=== PATIENT | female | born 1945 | race African-American/Black ===

== ENCOUNTER → 2018-04-07 | Outpatient (CLI) | payer MEDICARE, OTHER | END | disposition home or self-care (01) | LOC: NM 08:00 | PROVIDERS: ATTEND Specialist | DX: C50.919 Malignant neoplasm of unspecified site of unspecified female breast (principal) | CPT/HCPCS: 78306; A9503; C1893 ==

== ENCOUNTER → 2020-06-06 | Outpatient (CLI) | payer MEDICARE, OTHER | END | disposition home or self-care (01) | LOC: MRI 08:27 | PROVIDERS: ATTEND Neurological Surgery | DX: M47.816 Spondylosis without myelopathy or radiculopathy, lumbar region (principal); M48.07 Spinal stenosis, lumbosacral region; M51.27 Other intervertebral disc displacement, lumbosacral region; M25.78 Osteophyte, vertebrae | CPT/HCPCS: 72148 ==

== ENCOUNTER → 2021-02-11 | Outpatient (CLI) | payer MEDICARE, OTHER ==
[~2021-02-11] MED LIST: AMLO5TAB88 PO; ERGO500013 PO; HYDR-4001 PO; LEVA1.2526 NEB; LORA10TA7 PO; MELO-104 PO; MONT10TA32 PO; SIMV-43 PO; TRAM50TA3 PO; TRAV2.5D BOTHEYE
== END | disposition home or self-care (01) ==
LOC: LAB 14:05
PROVIDERS: ATTEND Neurological Surgery
DX: Z01.812 Encounter for preprocedural laboratory examination (principal); Z20.822 Contact with and (suspected) exposure to COVID-19
CPT/HCPCS: 87426

== ENCOUNTER 2021-02-18 21:39 | Inpatient (IN) | payer MEDICARE, OTHER ==
[~2021-02-18] VITALS: Ht 162.6 cm; Wt 64.9 kg
[2021-02-18 21:39] VITALS: BP 139/78
[~2021-02-18 21:39] MED LIST changes: +FLOV44 INH; +IPRA4AER INH
[2021-02-18] MEDS ORDERED: CLONIDINE 0.1MG TABLET PO PRN (22:30)
[2021-02-18] MEDS ORDERED: BISACODYL 5MG TABLET PO PRN (22:30)
[2021-02-18] MEDS ORDERED: IPRATROPIUM/ALBUTEROL 0.5-3(2.5)MG/3ML NEB HHN PRN (22:30)
[2021-02-19] MEDS: HYDROCODONE/ACETAMINOPHEN 5/325MG TABLET PO PRN ×3 (03:07→21:52)
[2021-02-19 06:52] LABS: BASOPHILS % 0.6 % (0.0-2.0); EOSINOPHILS % 1.7 % (0.0-5.0); HEMATOCRIT. 35.7 % (36.0-48.0); HEMOGLOBIN. 12.1 g/dL (12.0-16.0); MEAN CORPUSCULAR VOLUME 85.6 fL (81.0-99.0); MONOCYTES % 8.7 % (2.0-8.0); PLATELET 406 x1000/uL (130-400); RED BLOOD CELL COUNT 4.17 mill/uL (4.2-5.4); RED CELL DISTRIBUTION WIDTH 15.3 % (11.6-14.6)
[2021-02-19 07:04] LABS: CHLORIDE 104 mEq/L (98-107)
[2021-02-19 08:08] VITALS: BP 137/66
[2021-02-19] MEDS: AMLODIPINE 5MG TABLET PO SCH (08:45)
[2021-02-19] MEDS: DOCUSATE SODIUM 100MG CAPSULE PO SCH ×2 (08:45→16:06)
[2021-02-19] MEDS: LORATADINE 10MG TABLET PO SCH (08:45)
[2021-02-19] MEDS ORDERED: TRAMADOL 50MG TABLET PO PRN (10:15)
[2021-02-19 10:21] VITALS: BP 164/105
[2021-02-19] MEDS ORDERED: TEMAZEPAM 15MG CAPSULE PO PRN (11:00)
[2021-02-19 12:13] VITALS: BP 127/74
[2021-02-19 20:00] VITALS: BP 123/59
[2021-02-19] MEDS: POLYETHYLENE GLYCOL 3350 (17GM) 1 DOSE PACK PO SCH (21:00)
[2021-02-19] MEDS: MONTELUKAST SODIUM 10MG TABLET PO SCH (21:44)
[2021-02-19] MEDS: ATORVASTATIN CALCIUM 20MG TABLET PO SCH (21:44)
[2021-02-20] MEDS: HYDROCODONE/ACETAMINOPHEN 5/325MG TABLET PO PRN ×3 (02:35→13:34)
[2021-02-20 07:13] LABS: HEMATOCRIT. 32.7 % (36.0-48.0); HEMOGLOBIN. 11.1 g/dL (12.0-16.0); MEAN CORPUSCULAR HEMOGLOBIN 28.9 pg (28.0-32.0); MEAN CORPUSCULAR VOLUME 85.1 fL (81.0-99.0); MEAN PLATELET VOLUME 7.2 fl (7.4-10.4); PLATELET 421 x1000/uL (130-400); RED BLOOD CELL COUNT 3.84 mill/uL (4.2-5.4); RED CELL DISTRIBUTION WIDTH 15.4 % (11.6-14.6)
[2021-02-20 07:43] LABS: CHLORIDE 103 mEq/L (98-107); FOLIC ACID (FOLATE) SERUM 19.3 ng/mL (>5.38)
[2021-02-20 07:50] LABS: TOTAL IRON BINDING CAPACITY 215 ug/dL (250-450)
[2021-02-20 08:25] VITALS: BP 132/71
[2021-02-20] MEDS: AMLODIPINE 5MG TABLET PO SCH (09:14)
[2021-02-20] MEDS: LORATADINE 10MG TABLET PO SCH (09:14)
[2021-02-20] MEDS: DOCUSATE SODIUM 100MG CAPSULE PO SCH ×2 (09:14→16:10)
[2021-02-20] MEDS: CYANOCOBALAMIN 1000MCG/ML VIAL IM SCH (15:32)
[2021-02-20] MEDS: FERROUS SULFATE 325MG TABLET PO SCH (16:10)
[2021-02-20 17:11] LABS: PLATELET ESTIMATE INCREASED
[2021-02-20 20:00] VITALS: BP 140/71
[2021-02-20] MEDS: POLYETHYLENE GLYCOL 3350 (17GM) 1 DOSE PACK PO SCH (22:24)
[2021-02-20] MEDS: MONTELUKAST SODIUM 10MG TABLET PO SCH (22:25)
[2021-02-20] MEDS: ATORVASTATIN CALCIUM 20MG TABLET PO SCH (22:25)
[2021-02-21] MEDS: AMLODIPINE 5MG TABLET PO SCH (09:05)
[2021-02-21] MEDS: FERROUS SULFATE 325MG TABLET PO SCH ×3 (09:05→17:48)
[2021-02-21] MEDS: LORATADINE 10MG TABLET PO SCH (09:06)
[2021-02-21] MEDS: CYANOCOBALAMIN 1000MCG/ML VIAL IM SCH (09:06)
[2021-02-21] MEDS: DOCUSATE SODIUM 100MG CAPSULE PO SCH ×2 (09:06→17:48)
[2021-02-21] MEDS: ASCORBIC ACID 500 MG TABLET PO SCH (09:06)
[2021-02-21 20:00] VITALS: BP 119/78
[2021-02-21] MEDS: ATORVASTATIN CALCIUM 20MG TABLET PO SCH (20:44)
[2021-02-21] MEDS: MONTELUKAST SODIUM 10MG TABLET PO SCH (20:44)
[2021-02-21] MEDS: POLYETHYLENE GLYCOL 3350 (17GM) 1 DOSE PACK PO SCH (20:50)
[2021-02-21] MEDS: HYDROCODONE/ACETAMINOPHEN 5/325MG TABLET PO PRN (20:50)
[2021-02-22 08:08] VITALS: BP 120/66
[2021-02-22] MEDS: CYANOCOBALAMIN 1000MCG/ML VIAL IM SCH (09:31)
[2021-02-22] MEDS: AMLODIPINE 5MG TABLET PO SCH (09:31)
[2021-02-22] MEDS: ASCORBIC ACID 500 MG TABLET PO SCH (09:32)
[2021-02-22] MEDS: DOCUSATE SODIUM 100MG CAPSULE PO SCH ×2 (09:32→16:03)
[2021-02-22] MEDS: LORATADINE 10MG TABLET PO SCH (09:32)
[2021-02-22] MEDS: FERROUS SULFATE 325MG TABLET PO SCH ×3 (09:32→16:03)
[2021-02-22] MEDS: HYDROCODONE/ACETAMINOPHEN 5/325MG TABLET PO PRN ×2 (09:54→20:34)
[2021-02-22] MEDS: DILTIAZEM HCL 30MG TABLET PO SCH ×2 (16:03→17:19)
[2021-02-22 20:00] VITALS: BP 147/60
[2021-02-22] MEDS: ATORVASTATIN CALCIUM 20MG TABLET PO SCH (20:31)
[2021-02-22] MEDS: MONTELUKAST SODIUM 10MG TABLET PO SCH (20:31)
[2021-02-22] MEDS: POLYETHYLENE GLYCOL 3350 (17GM) 1 DOSE PACK PO SCH (20:31)
[2021-02-23] MEDS: DILTIAZEM HCL 30MG TABLET PO SCH ×4 (00:04→18:27)
[2021-02-23 07:17] LABS: BASOPHILS % 0.6 % (0.0-2.0); EOSINOPHILS % 1.1 % (0.0-5.0); HEMATOCRIT. 33.3 % (36.0-48.0); HEMOGLOBIN. 11.3 g/dL (12.0-16.0); MEAN CORPUSCULAR VOLUME 85.4 fL (81.0-99.0); MEAN PLATELET VOLUME 6.8 fl (7.4-10.4); MONOCYTES % 12.2 % (2.0-8.0); NEUTROPHILS % 64.1 % (40.0-76.0); PLATELET 504 x1000/uL (130-400); RED BLOOD CELL COUNT 3.89 mill/uL (4.2-5.4); RED CELL DISTRIBUTION WIDTH 15.2 % (11.6-14.6)
[2021-02-23 07:18] LABS: CHLORIDE 103 mEq/L (98-107)
[2021-02-23 08:00] VITALS: BP 153/76
[2021-02-23] MEDS ORDERED: POTASSIUM CHLORIDE 20MEQ/PACKET PO NR (09:00)
[2021-02-23] MEDS: ASCORBIC ACID 500 MG TABLET PO SCH (09:26)
[2021-02-23] MEDS: CYANOCOBALAMIN 1000MCG/ML VIAL IM SCH (09:26)
[2021-02-23] MEDS: FERROUS SULFATE 325MG TABLET PO SCH ×4 (09:26→17:00)
[2021-02-23] MEDS: DOCUSATE SODIUM 100MG CAPSULE PO SCH ×3 (09:26→17:00)
[2021-02-23] MEDS: LORATADINE 10MG TABLET PO SCH (09:27)
[2021-02-23] MEDS: ASPIRIN 81MG EC TABLET PO SCH (09:28)
[2021-02-23] MEDS ORDERED: ENOXAPARIN 80MG/0.8ML SYR SUBCUT SCH (13:30)
[2021-02-23] MEDS: ENOXAPARIN 40MG/0.4ML SYR SUBCUT SCH (15:17)
[2021-02-23] MEDS: HYDROCODONE/ACETAMINOPHEN 5/325MG TABLET PO PRN (16:59)
[2021-02-23 20:00] VITALS: BP 155/68
[2021-02-23] MEDS: POLYETHYLENE GLYCOL 3350 (17GM) 1 DOSE PACK PO SCH (21:00)
[2021-02-23] MEDS: ATORVASTATIN CALCIUM 20MG TABLET PO SCH (21:52)
[2021-02-23] MEDS: MONTELUKAST SODIUM 10MG TABLET PO SCH (21:52)
[2021-02-24] MEDS: DILTIAZEM HCL 30MG TABLET PO SCH ×5 (01:01→23:38)
[2021-02-24 06:55] VITALS: BP 146/66
[2021-02-24 07:31] LABS: INR 1.1; PROTHROMBIN TIME 11.7 sec (9.6-11.0)
[2021-02-24] MEDS: CYANOCOBALAMIN 1000MCG/ML VIAL IM SCH (08:26)
[2021-02-24] MEDS: ASCORBIC ACID 500 MG TABLET PO SCH (08:26)
[2021-02-24] MEDS: ASPIRIN 81MG EC TABLET PO SCH (08:26)
[2021-02-24] MEDS: FERROUS SULFATE 325MG TABLET PO SCH ×3 (08:26→17:50)
[2021-02-24] MEDS: DOCUSATE SODIUM 100MG CAPSULE PO SCH ×2 (08:26→17:50)
[2021-02-24] MEDS: LORATADINE 10MG TABLET PO SCH (08:27)
[2021-02-24] MEDS ORDERED: POTASSIUM CHLORIDE 20MEQ TABLET SR PO NR (10:15)
[2021-02-24] MEDS: ENOXAPARIN 40MG/0.4ML SYR SUBCUT SCH (15:11)
[2021-02-24 20:00] VITALS: BP 152/55
[2021-02-24] MEDS: POLYETHYLENE GLYCOL 3350 (17GM) 1 DOSE PACK PO SCH (21:00)
[2021-02-24] MEDS: MONTELUKAST SODIUM 10MG TABLET PO SCH (21:41)
[2021-02-24] MEDS: ATORVASTATIN CALCIUM 20MG TABLET PO SCH (21:41)
[2021-02-25] MEDS: DILTIAZEM HCL 30MG TABLET PO SCH ×3 (05:42→18:00)
[2021-02-25 07:34] LABS: CHLORIDE 104 mEq/L (98-107)
[2021-02-25 07:50] VITALS: BP 135/63
[2021-02-25] MEDS: DOCUSATE SODIUM 100MG CAPSULE PO SCH ×2 (09:04→17:52)
[2021-02-25] MEDS: CYANOCOBALAMIN 1000MCG/ML VIAL IM SCH (09:04)
[2021-02-25] MEDS: ASPIRIN 81MG EC TABLET PO SCH (09:04)
[2021-02-25] MEDS: FERROUS SULFATE 325MG TABLET PO SCH ×3 (09:05→17:52)
[2021-02-25] MEDS: ASCORBIC ACID 500 MG TABLET PO SCH (09:05)
[2021-02-25] MEDS: LORATADINE 10MG TABLET PO SCH (09:05)
[2021-02-25] MEDS ORDERED: ERGOCALCIFEROL 50000UNITS CAPSULE PO SCH (15:00)
[2021-02-25] MEDS: ENOXAPARIN 40MG/0.4ML SYR SUBCUT SCH (15:16)
[2021-02-25 20:00] VITALS: BP 160/72
[2021-02-25] MEDS: ATORVASTATIN CALCIUM 20MG TABLET PO SCH (22:08)
[2021-02-25] MEDS: POLYETHYLENE GLYCOL 3350 (17GM) 1 DOSE PACK PO SCH (22:09)
[2021-02-25] MEDS: MONTELUKAST SODIUM 10MG TABLET PO SCH (22:09)
[2021-02-26] MEDS: DILTIAZEM HCL 30MG TABLET PO SCH ×3 (00:42→12:16)
[2021-02-26 08:00] VITALS: BP 147/76
[2021-02-26] MEDS: FERROUS SULFATE 325MG TABLET PO SCH ×2 (08:34→12:14)
[2021-02-26] MEDS: ASPIRIN 81MG EC TABLET PO SCH (08:34)
[2021-02-26] MEDS: ASCORBIC ACID 500 MG TABLET PO SCH (08:34)
[2021-02-26] MEDS: LORATADINE 10MG TABLET PO SCH (08:34)
[2021-02-26] MEDS: DOCUSATE SODIUM 100MG CAPSULE PO SCH (08:34)
[2021-02-26] MEDS: CYANOCOBALAMIN 1000MCG/ML VIAL IM SCH (08:34)
[2021-02-26] MEDS ORDERED: FERR325T23 PO (09:54)
[2021-02-26] MEDS ORDERED: ASPI-1406 PO (09:54)
[2021-02-26] MEDS ORDERED: DILT30TA38 PO (09:54)
[2021-02-26 11:32] VITALS: BP 147/76
== END 2021-02-26 13:17 | disposition home health service (06) | DRG 552 ==
PROVIDERS: ADMIT Physical Medicine & Rehabilitation Spinal Cord Injury Medicine; ATTEND Internal Medicine
DX: M48.061 Spinal stenosis, lumbar region without neurogenic claudication (principal); G82.20 Paraplegia, unspecified; E11.9 Type 2 diabetes mellitus without complications; F39 Unspecified mood [affective] disorder; G89.4 Chronic pain syndrome; I10 Essential (primary) hypertension; J42 Unspecified chronic bronchitis; Z85.3 Personal history of malignant neoplasm of breast; Z87.891 Personal history of nicotine dependence; Z90.13 Acquired absence of bilateral breasts and nipples
CPT/HCPCS: 36415; 71045; 71046; 78582; 80048; 80053; 82306; 82607; 82728; 82746; 83540; 83550; 83735; 84134; 84443; 85025; 93005; 93306; 93970; 97110; 97116; 97162; 97166; 97530; 97535; A9558; J1650; J3420